=== PATIENT | female | born 2000 | race Caucasian/White ===

== ENCOUNTER 2025-01-05 19:14 | Emergency (ER) | payer OTHER, SELFPAY ==
--- OUTSIDE RECORDS SUMMARY | 2025-01-05 19:21 | XMS_ITS | Patient Health Summary ---
Author Organization [facility] Address [address] [place] [address] Care Team Providers Care Clinical Research Associate Name Role Phone Nydia Castañeda PA-C Primary Care Provider Note from [facility],non-owned Affiliates and Associated Physician Practices is amultiple site organization consisting of ambulatory clinics and hospital sitesin [place], [place], [place] and [place]. This disclosure is being madepursuant to the Care Everywhere program and may not contain all information available regarding this patient. Last updated 18.[facility] Allergies No known active allergies Medications * Be aware that medications may not be up to date on this document. Alwaysverify current medications with the patient. * Naproxen Sodium 220 MG Take by mouth as needed * Levonorgestrel (MIRENA, 52 MG, IU) Active Problems Problem Noted Date Diagnosed Date S/P laparoscopic appendectomy 11/01/2016 Nocturnal enuresis 02/17/2014 Immunizations * DTP(Given 04/01/2003, 01/28/2003, 2002) * FLU VACCINE TRI IIV3 SPLIT PF IM (FLUVIRIN)(Given 10/26/2013) * HEP B VACCINE ADOL/ADULT 2 DOSE(Given 04/01/2003, 2002, 2002) * HIB-HAEMOPHILUS INFLUENZAE B CONJUGATE VACCINE(Given 04/01/2003, 01/28/2003, 2002) * INFLUENZA VACCINE(Given 08/23/2017) * INFLUENZA VACCINE, QUADR. (FLUZONE; FLULAVAL; FLUARIX; AFLURIA QUADRIVALENT; 6MO+), 0.5 ML (IIV4)(Given 10/03/2015) * PNEUMOCOCCAL PCV7 CONJ, PEDS(Given 04/01/2003, 01/28/2003, 2002) * POLIO IPV(Given 01/28/2003, 2002) * TDAP (7yrs+)(Given 06/14/2014) * VARICELLA(Given 01/06/2015) Social History Tobacco Use Types Packs/Day Years Used Date Smoking Tobacco: Never Smokeless Tobacco: Never Alcohol Use Standard Drinks/Week Comments No 0 (1 standard drink = 0.6 oz pur e alcohol) PHQ-2 Answer Date Recorded PHQ2 TOTAL SCORE 0 08/10/2021 Sex and Gender Information Value Date Recorded Sex Assigned at Not on file Gender Identity Not on file Sexual Orientation Not on file Last Filed Vital Signs Vital Sign Reading Time Taken Comments Blood Pressure 96/84 10/13/2021 1:05 PM DUCK BILL OPERATOR Pulse 85 10/13/2021 1:05 PM DUCK BILL OPERATOR Temperature 37.1 C (98.7 F) 10/13/2021 1:05 PM DUCK BILL OPERATOR Respiratory Rate 18 10/13/2021 1:05 PM DUCK BILL OPERATOR Oxygen Saturation 98% 10/13/2021 1:05 PM DUCK BILL OPERATOR Inhaled Oxygen Concentration 21% 10/19/2016 7 :45 AM DUCK BILL OPERATOR Weight 67.1 kg (148 lb) 10/13/2021 1:05 PM DUCK BILL OPERATOR Height 157.5 cm (5' 2 ) 10/13/2021 1:05 PM DUCK BILL OPERATOR Body Mass Index 27.07 10/13/2021 1:05 PM DUCK BILL OPERATOR Procedures * CULTURE URINE(Performed 08/10/2021) Performed for Acute UTI * URINALYSIS - POCT (IP) BEAKER INTERFACE(Performed 08/09/2021) Performed for UTI symptoms * URINALYSIS - POCT (IP) NOTIFICATION(Performed 08/09/2021) Performed for UTI symptoms * VAGINITIS PLUS (BV CA CT NG TRICH)(Performed 10/18/2020) Performed for Vaginal discharge * CULTURE THROAT(Performed 09/27/2020) Performed for Acute pharyngitis, unspecified etiology * STREP A SCREEN - POINT OF CARE (AMB) SMGS(Performed 09/27/2020) Performed for Acute pharyngitis, unspecified etiology * CULTURE URINE(Performed 05/24/2020) Performed for Acute cystitis without hematuria * URINALYSIS - POCT (IP) BEAKER INTERFACE(Performed 05/23/2020) Performed for Dysuria * URINALYSIS - POCT (IP) NOTIFICATION(Performed 05/23/2020) Performed for Dysuria * CULTURE THROAT(Performed 09/18/2017) Performed for Acute pharyngitis, unspecified etiology * STREP A SCREEN - POINT OF CARE (AMB) SMGS(Performed 09/18/2017) Performed for Acute pharyngitis, unspecified etiology * CARDIAC RHYTHM STRIP ORDER(Performed 10/22/2016) * OXYGEN(Performed 10/18/2016) * GROSS + MICRO EXAM (ILL)(Performed 10/18/2016) Performed for Appendicitis, unspecified appendicitis type * LAPAROSCOPIC APPENDECTOMY(Performed 10/18/2016) Performed for Appendicitis, unspecified appendicitis type * HCG BLOOD QUALITATIVE(Performed 10/18/2016) Performed for Preop testing * CT ABDOMEN PELVIS W CONTRAST(Performed 10/18/2016) Performed for Abdominal pain, RLQ (right lower quadrant) * COMPREHENSIVE METABOLIC PANEL(Performed 10/18/2016) Performed for Abdominal pain, RLQ (right lower quadrant), Non-intractable vomiting with nausea, unspecified vomiting type * CBC W AUTO DIFFERENTIAL(Performed 10/18/2016) Performed for Abdominal pain, RLQ (right lower quadrant), Non-intractable vomiting with nausea, unspecified vomiting type * CALCIUM/CREAT RATIO URINE RANDOM PANEL(Performed 02/23/2014) Performed for Nocturnal enuresis * URINALYSIS REFLEX TO MICROSCOPIC NO CULTURE(Performed 02/23/2014) Performed for Nocturnal enuresis * CULTURE URINE(Performed 02/23/2014) Performed for Nocturnal enuresis * URINE MICROSCOPIC ONLY(Performed 02/23/2014) Performed for Nocturnal enuresis * US BLADDER RESIDUAL ACC(Performed 02/23/2014) Performed for Nocturnal enuresis * US KIDNEYS W BLADDER(Performed 02/23/2014) Performed for Nocturnal enuresis * CULTURE URINE(Performed 02/17/2014) Performed for Urinary frequency * URINALYSIS AUTO - POINT OF CARE (AMB) SMGS(Performed 02/17/2014) Performed for Urinary frequency, Vaginal itching * FL CYSTOGRAM VOIDING(Performed 04/10/2011) Performed for Urinary tract infection, site not specified Results * CULTURE URINE (08/10/2021 11:35 AM CDT) Only the most recent of4 resultswithin the time period is included. Pathologist [facility] Culture Urine Light growth normal skin/urogen ital misti SYLVIA 08/12/2021 10:24 AM CDT [facility] Urine URINE SPECIMEN OBTAINED BY CLEAN CATCH PROCEDURE / Unknown Collection / Unknown 08/10/2021 11:35 AM CDT 08/10/2021 11:35 AM CDT Nydia Castañeda PA-C LAB - MICROBIOLOGY O RDERABLES [facility] [address] * (ABNORMAL) URINALYSIS - POCT (IP) BEAKER INTERFACE (08/09/2021 12:07 PM CDT) Only the most recent of2 resultswithin the time period is included. Pathologist [facility] Color UA POCT Dark Yellow(A) Straw, Yellow, Light Yellow 08/09/2021 12:05 PM CDT [facility] Clarity UA POCT Cloudy(A) Clear 12:05 PM CDT [facility] Specific [place] UA POCT >=1.030 1.005 - 1.030 08/09/2021 12:05 PM CDT [facility] pH UA POCT 5.0 5.0 - 8.5 pH 08/09/2021 12:05 PM CDT [facility] Protein UA POCT 2+(A) Negative 1 12:05 PM CDT [facility] Blood UA POCT 2+(A) Negative, Trace-lysed , Trace-intac t 08/09/2021 12:05 PM CDT [facility] Leukocyte UA POCT 2+(A) Negative 08/09/2021 12:05 PM CDT [facility] Nitrite UA POCT Negative Negative 12:05 PM CDT [facility] Glucose UA POCT Negative Negative 1 12:05 PM CDT [facility] Ketone UA POCT Negative Negative 08/09/2021 12:05 PM CDT [facility] Bilirubin UA POCT Negative Negative 08/09/2021 12:05 PM CDT [facility] Urobilinogen UA POCT 0.2 0.2 - 1.0 EU/dL 08/09/2021 12:05 PM CDT [facility] Urine URINE / Unknown 08/09/2021 1 2:07 PM CDT 08/09/2021 12:05 PM CDT Do Henderson APRN-DIRECTOR OF ALUMNI RELATIONS LAB - POIN T OF CARE ORDERABLES Performing Organization Address City/[facility]/ZIP Co de Phone Number [facility] [address] * URINALYSIS - POCT (IP) NOTIFICATION (08/09/2021 11:59 AM CDT) Only the most recent of2 resultswithin the time period is included. Comment Notification Label Only - See Separate Report 08/09/2021 1:00 PM CDT [facility] Urine URINE / Unknown 08/09/2021 1 1:59 AM CDT 08/09/2021 11:59 AM CDT Do Henderson APRN-DIRECTOR OF ALUMNI RELATIONS LAB - URIN ALYSIS ORDERABLES Performing Organization Address [facility] Co de Phone Number [facility] [address] * (ABNORMAL) VAGINITIS PLUS (BV CA CT NG TRICH) (10/18/2020 5:00 PM DUCK BILL OPERATOR) Atopobium vaginae Low - 0 Score [facility] INSURANCE BILL BVAB 2 Low - 0 Score [facility] INSURANCE BILL Megashaera Low - 0 Score [facility] INSURANCE BILL Comment: Calculate total score by adding the 3 individual bacterial vaginosis (BV) marker scores together. Total score is interpreted as follows: Total score 0-1: Indicates the absence of BV. Total score 2: Indeterminate for BV. Additional clinical data should be evaluated to establish a diagnosis. Total score 3-6: Indicates the presence of BV. . This test was developed and its performance characteristics determined [facility]. It has not been cleared or approved by the Food and Drug Administration. The FDA has determined that such clearance or approval is not necessary. Melissa albicans HEENA Positive(A) Negative [facility] INSURANCE BILL Melissa glabrata HEENA Negative Negative [facility] INSURANCE BILL Trichomonas vaginalis by HEENA Negative Negative [facility] INSURANCE BILL Chlamydia Trachomatis HEENA Negative Negative [facility] INSURANCE BILL GC HEENA Negative Negative [facility] INSURANCE BILL Microbiology ENTIRE VAGINA / Unknown 10/18/2020 5:00 PM DUCK BILL OPERATOR 10/21/2020 Narrative [facility] INSURANCE BILL - 10/29/2020 10:07 AM DUCK BILL OPERATOR Test(s) 763006-Pmjdgnd albicans, HEENA; 339845-Koxlsbz glabrata, HEENA was developed and its performance characteristics determined by [employer]. It has not been cleared or approved by the Food and Drug Administration. Resulting Agency Comment Lab Testing performed at: [address] [id number] Nina Gonzalez APRN-DIRECTOR OF ALUMNI RELATIONS LAB - MICROBI OLOGY ORDERABLES Performing Organization Address City/[facility]/ZIP Co de Phone Number [facility] INSURANCE BILL [address] [place] [address] * (ABNORMAL) CULTURE THROAT (09/27/2020 1:49 PM DUCK BILL OPERATOR) Only the most recent of2 resultswithin the time period is included. [facility] Culture 2+ growth Beta-hemolytic Streptococcus group C(A) SYLVIA 09/29/2020 2:40 AM DUCK BILL OPERATOR [facility] Culture Growth of normal oropharyngeal misti SYLVIA 09/29/2020 2:40 AM DUCK BILL OPERATOR [facility] Microbiology ENTIRE THROAT (SURFACE REGION OF NECK) / Unknown Collection / Unknown 09/27/2020 1:49 PM DUCK BILL OPERATOR 09/27/2020 1:49 PM DUCK BILL OPERATOR Nydia Castañeda PA-C LAB - MICROBIOLOGY O RDERABLES [facility] [address] * STREP A SCREEN - POINT OF CARE (AMB) SMGS (09/27/2020) Only the most recent of2 resultswithin the time period is included. Pathologist [facility] Strep A Rapid POCT Negative Negative [facility] Strep A Rapid Screen Internal Control POCT Present [facility] Throat ENTIRE THROAT (SURFACE REGION OF NECK) / Unknown 09/27/2020 Nydia Castañeda PA-C LAB - POINT OF CARE ORDERABLES [facility] [address] * CARDIAC RHYTHM STRIP ORDER (10/22/2016 11:57 AM DUCK BILL OPERATOR) Narrative 10/22/2016 11:57 AM DUCK BILL OPERATOR Ordered by an unspecified provider. Scanned Document [facility] SERVICES ORD ERABLES * GROSS + MICRO EXAM (ILL) (10/18/2016 6:24 PM DUCK BILL OPERATOR) Case Report Surgical Pathology Report Case: [id number] Authorizing Provider: Andrei Castellanos MD Collected: 10/18/2016 06:24 PM Ordering Location: [facility] Received: 10/19/2016 01:38 PM Pathologist: Lino Adams MD Specimen: Appendix 10/22/2016 1:42 PM DUCK BILL OPERATOR [facility] Final Diagnosis APPENDIX, APPENDECTOMY: - ACUTE, TRANSMURAL APPENDICITIS WITH SEROSITIS AND PERIAPPENDICITIS. - NEGATIVE FOR EVIDENCE OF RUPTURE. - NEGATIVE FOR DYSPLASIA AND MALIGNANCY. ALK/alj 10/22/2016 1:42 PM [facility] Clinical History PREOPERATIVE DIAGNOSIS: Appendicitis, unspecified appendicitis type OPERATIVE PROCEDURE: Laparoscopic appendectomy 10/22/2016 1:42 PM [facility] Gross Description One specimen was received for gross and micro exam. Received in formalin, labeled properly with the patient identification and, a ppendix is a segment of vermiform appendix measuring 8.0 cm in length ranging 0.5 cm (distal) - 1.3 cm (proximal). The serosa appears guardado-schafer with a thick layer of purulent exudates covering distal 4.5 cm segment. On cut section, the wall appears thickened measuring up to 0.4 cm. The mucosa appears pink. No area of rupture is noted. No fecalith is seen. A paper sales representative portion of the specimen is submitted as follows: A1 - a distal longitudinal section and a cross section of base, A2 - multiple cross sections through grossly inflamed area. HC/na 10/22/2016 1:42 PM [facility] Grossed By Camilo Pierre M.D. 1:42 PM [facility] Microscopic Description Microscopic examination is performed and substantiates the above diagnosis. 10/22/2016 1:42 PM [facility] Performed By Performed by [facility] [place]. [address]. 10/22/2016 1:42 PM [facility] Disclaimer H&E slides [place]. [address] (CLIA# [id number]) unless otherwise specified. 10/22/2016 1:42 PM [facility] Embedded Images 10/22/2016 1:42 PM [facility] Pathology/Cytolo gy ENTIRE APPENDIX / Unknown 10/18/2016 6:24 PM DUCK BILL OPERATOR 10/19/2016 1:38 PM DUCK BILL OPERATOR Andrei Castellanos MD LAB - PATHOLOGY/CYTO LOGY ORDERABLES Performing Organization Address City/[facility]/ZIP Co de Phone Number [facility] [address] * HCG BLOOD QUALITATIVE (10/18/2016 5:09 PM DUCK BILL OPERATOR) HCG Qual Serum Negative Negative 10/18/2016 5:25 PM DUCK BILL OPERATOR [facility] Blood BLOOD SPECIMEN / Unknown Lab Venipuncture / Unknown 10/18/2016 5:09 PM DUCK BILL OPERATOR 10/18/2016 5:14 PM DUCK BILL OPERATOR Andrei Castellanos MD LAB - CHEMISTRY ORDE RABLES Performing Organization Address [facility] Co de Phone Number [facility] [address] * CT ABDOMEN AND PELVIS W IV CONTRAST [id number] (10/18/2016 2:40 PM DUCK BILL OPERATOR) Anatomical Region Laterality Modality Abdomen, Pelvis Computed Tomogra phy 10/18/2016 2:58 PM DUCK BILL OPERATOR Narrative 10/18/2016 4:[address] SCAN OF THE ABDOMEN AND PELVIS WITH IV CONTRAST 10/18/2016 INDICATION: Lower quadrant pain. CT performed with injection of 60 cc of Omnipaque 300 intravenously. COMPARISON: None. Radiation dose reduction technique was utilized. FINDINGS: The appendix is markedly enlarged. It is located in a retrocecal location. There is para appendiceal stranding but no abscess cavity. Findings consistent with acute appendicitis. Appendix measures 1.5 cm in diameter. Trace amount of free fluid. Uterus lies to the left of midline. No adnexal masses. No bowel obstruction. No free air. Lung bases are clear. Heart size is normal. Liver is homogeneous. Gallbladder is grossly normal. Spleen is within normal limits in size. Pancreatic contour is normal. Renal margins are smooth. No renal calculi. No hydronephrosis. No adenopathy. SUMMARY: Acute appendicitis in a retrocecal appendix without abscess cavity. Preliminary report faxed to Maru Castañeda PA-C 10/18/2016 at 1502h. Call subsequently made to Grace Dennison to confirm receipt. Procedure Note Reji Smalls MD - 10/18/2016 CT SCAN OF THE ABDOMEN AND PELVIS WITH IV CONTRAST 10/18/2016 INDICATION: Lower quadrant pain. CT performed with injection of 60 cc of Omnipaque 300 intravenously. COMPARISON: None. Radiation dose reduction technique was utilized. FINDINGS: The appendix is markedly enlarged. It is located in a retrocecal location. There is para appendiceal stranding but no abscess cavity. Findings consistent with acute appendicitis. Appendix measures 1.5 cm in diameter. Trace amount of free fluid. Uterus lies to the left of midline. No adnexal masses. No bowel obstruction. No free air. Lung bases are clear. Heart size is normal. Liver is homogeneous. Gallbladder is grossly normal. Spleen is within normal limits in size. Pancreatic contour is normal. Renal margins are smooth. No renal calculi. No hydronephrosis. No adenopathy. SUMMARY: Acute appendicitis in a retrocecal appendix without abscess cavity. Preliminary report faxed to Maru Castañeda PA-C 10/18/2016 at 1502h. Call subsequently made to Grace Dennison to confirm receipt. Nydia Castañeda PA-C CT ORDERABLES * (ABNORMAL) CBC W AUTO DIFFERENTIAL (10/18/2016 1:03 PM DUCK BILL OPERATOR) [facility] WBC 13.3(H) 3.8 - 9.8 x10E9/L 10/18/2016 1:34 PM [facility] RBC 4.93 3.93 - 5.29 x10E12/L 10/18/2016 1:34 PM [facility] Hemoglobin 15.4(H) 10.8 - 14.5 gm/dL 10/18/2016 1:34 PM [facility] Hematocrit 43.5 33.4 - 43.5 % 10/18/2016 1:34 PM [facility] MCV 88.2 76.7 - 90.6 fl 10/18/2016 1:34 PM [facility] MCH 31.2(H) 24.8 - 30.2 pg 10/18/2016 1:34 PM [facility] MCHC 35.4(H) 31.5 - 34.8 gm/dL 10/18/2016 1:34 PM [facility] RDW 12.6 12.3 - 14.6 % 10/18/2016 1:34 PM [facility] MPV 9.9 8.6 - 11.8 fl 10/18/2016 1:34 PM [facility] Platelet Count 232 175 - 345 x10E9/L 10/18/2016 1:34 PM [facility] Neutrophils % 80.3(H) 32.5 - 74.7 % 10/18/2016 1:34 PM [facility] Lymphocytes % 7.8(L) 16.4 - 52.7 % 10/18/2016 1:34 PM [facility] Monocytes % 8.2 4.1 - 12.3 % 10/18/2016 1:34 PM [facility] Eosinophils % 3.1 0.0 - 4.0 % 10/18/2016 1:34 PM [facility] Basophils % 0.4 0.0 - 0.7 % 10/18/2016 1:34 PM [facility] Immature Granulocytes 0.2 0 - 0.3 % 10/18/2016 1:34 PM [facility] Neutrophil Absolute 10.64(H) 1.54 - 7.47 x10E9/L 10/18/2016 1:34 PM [facility] Lymphocytes Absolute 1.04 0.97 - 3.33 x10E9/L 10/18/2016 1:34 PM [facility] Monocytes Absolute 1.08(H) 0.18 - 0.78 x10E9/L 10/18/2016 1:34 PM [facility] Eosinophils Absolute 0.41(H) 0.02 - 0.38 x10E9/L 10/18/2016 1:34 PM [facility] Basophils Absolute 0.05 0.01 - 0.05 x10E9/L 10/18/2016 1:34 PM [facility] Immature Granulocytes Absolute 0.03 0 - 0.03 x10E9/L 10/18/2016 1:34 PM [facility] nRBC Auto 0 <=0 /100 WBC 10/18/2016 1:34 PM [facility] nRBC Absolute 0.00 <=0 x10E9/L 10/18/2016 1:34 PM [facility] Blood BLOOD SPECIMEN / Unknown Lab Venipuncture / Unknown 10/18/2016 1:03 PM DUCK BILL OPERATOR 10/18/2016 1:29 PM [facility] Nydia Castañeda PA-C LAB - HEMATOLOGY ORD ERABLES Performing Organization Address City/State/[facility] Co de Phone Number [facility] [address] * (ABNORMAL) COMPREHENSIVE METABOLIC PANEL (10/18/2016 1:03 PM [facility]) Glucose 89 70 - 125 mg/dL 10/18/2016 2:01 PM [facility] Sodium 140 136 - 145 mmol/L 10/18/2016 2:01 PM [facility] Potassium 3.8 3.4 - 4.5 mmol/L 10/18/2016 2:01 PM [facility] Chloride 107 98 - 107 mmol/L 10/18/2016 2:01 PM [facility] CO2 24 22 - 29 mmol/L 10/18/2016 2:01 PM [facility] Calcium 9.5 8.4 - 10.2 mg/dL 10/18/2016 2:01 PM [facility] Anion Gap 13 10 - 20 mmol/L 10/18/2016 2:01 PM [facility] BUN 6.5(L) 9.8 - 20.1 mg/dL 10/18/2016 2:01 PM [facility] Creatinine 0.60 0.57 - 1.11 mg/dL 10/18/2016 2:01 PM [facility] eGFR by MDRD mL/min/1.7 3m2 10/18/2016 2:01 PM [facility] Comment: eGFR calculations are not performed for children under 18 years old. eGFR by MDRD mL/min/1.7 3m2 10/18/2016 2:01 PM [facility] Comment: eGFR calculations are not performed for children under 18 years old. Alkaline Phosphatase 173(H) 40 - 150 U/L 10/18/2016 2:01 PM [facility] ALT 11 5 - 55 U/L 10/18/2016 2:01 PM [facility] AST 19 5 - 34 U/L 10/18/2016 2:01 PM [facility] Protein Total 7.1 6.4 - 8.3 gm/dL 10/18/2016 2:01 PM [facility] Albumin 3.9 3.5 - 5.0 gm/dL 10/18/2016 2:01 PM [facility] Globulin Total 3.2 2.6 - 4.0 gm/dL 10/18/2016 2:01 PM [facility] Albumin/Globulin Ratio 1.2 0.9 - 1.6 10/18/2016 2:01 PM [facility] Bilirubin Total 0.7 0.2 - 1.2 mg/dL 10/18/2016 2:01 PM [facility] Blood BLOOD SPECIMEN / Unknown Lab Venipuncture / Unknown 10/18/2016 1:03 PM DUCK BILL OPERATOR 10/18/2016 1:29 PM [facility] Nydia Castañeda PA-C LAB - CHEMISTRY CARIE BIGGS [facility] Organization Address [facility] de Phone Number [facility] [address] * CALCIUM/CREAT RATIO URINE RANDOM PANEL (02/23/2014 10:38 AM T) Calcium Urine 14.66 mg/dL 02/23/2014 11:30 AM [facility] Creatinine Urine 95.37 mg/dL 02/23/2014 11:30 AM [facility] Calcium/Creatin ine Ratio Urine 0.15 02/23/2014 11:30 AM [facility] Urine URINE SPECIMEN OBTAINED BY CLEAN CATCH PROCEDURE / Unknown 02/23/2014 10:38 AM CDT 02/23/2014 10:53 AM CDT Narrative [facility] - 02/23/2014 11:30 AM CDT Normal <0.16 Borderline 0.16-0.20 Abnormal >0.20 Renee Siu HEAD RESIDENT-DIRECTOR OF ALUMNI RELATIONS LAB - URINE CHEMISTRY ORDERABLES Performing Organization Address [facility] de Phone Number [facility] [address] [place] [address] * URINALYSIS ROUTINE AUTO (02/23/2014 10:37 AM CDT) Color UA Yellow Straw, Yellow, Dark Yellow 02/23/2014 11:29 AM T [facility] Clarity UA Clear 02/23/2014 11:29 AM T [facility] Specific [place] UA >=1.030 1.005 - 1.030 02/23/2014 11:29 AM T [facility] pH UA 6.5 5.0 - 8.0 pH 02/23/2014 11:29 AM T [facility] Protein UA Negative Negative 02/23/2014 11:29 AM T [facility] Blood UA Negative Negative 02/23/2014 11:29 AM T [facility] Leukocyte UA Negative Negative 02/23/2014 11:29 AM T [facility] Nitrite UA Negative Negative 02/23/2014 11:29 AM T [facility] Glucose UA Negative Negative 02/23/2014 11:29 AM T [facility] Ketone UA Negative Negative 02/23/2014 11:29 AM T [facility] Bilirubin UA Negative Negative 02/23/2014 11:29 AM T [facility] Urobilinogen UA 0.2 0.1 - 1.0 EU/dL 02/23/2014 11:29 AM T [facility] Urine URINE SPECIMEN OBTAINED BY CLEAN CATCH PROCEDURE / Unknown 02/23/2014 10:37 AM CDT 02/23/2014 11:27 AM CDT Renee Siu HEAD RESIDENT-DIRECTOR OF ALUMNI RELATIONS LAB - URINAL YSIS ORDERABLES Performing Organization Address [facility] de Phone Number [facility] [address] [place] [address] * (ABNORMAL) URINALYSIS MICROSCOPIC ONLY (02/23/2014 10:37 AM CDT) RBC UA 0-2 0-2, 2-5 # /hpf 02/23/2014 11:32 AM CDT [facility] WBC UA 0-2 0-2, 2-5 # /hpf 02/23/2014 11:32 AM CDT [facility] Bacteria UA Trace None Seen, Trace 02/23/2014 11:32 AM CDT [facility] Epithelial Cell UA 0-2 0-2, 2-5 02/23/2014 11:32 AM CDT [facility] Amorphous Urate Crystals 1+(A) None Seen 02/23/2014 11:32 AM CDT [facility] Urine URINE SPECIMEN OBTAINED BY CLEAN CATCH PROCEDURE / Unknown 02/23/2014 10:37 AM CDT 02/23/2014 11:27 AM CDT Renee Siu [facility] - URINAL YSIS ORDERABLES Performing Organization Address City/State/[facility] Co de Phone Number [facility] [address] [place] [address] * US BLADDER RESIDUAL ACC (02/23/2014 10:08 AM CDT) Narrative Ce Arndt RN - 02/23/2014 10:08 AM CDT Ce Arndt RN 02/23/2014 10:08 AM Post void residual per BladderScan ~5 min after void = 13 ml. Procedure Note Ce Arndt RN - 02/23/2014 10:06 AM CDT Post void residual per BladderScan ~5 min after void = 13 ml. Apple Recio [facility] PROCEDURE ORD ERABLES * US KIDNEY AND BLADDER (02/23/2014 9:13 AM CDT) Anatomical Region Laterality Modality Ultrasound 02/23/2014 10:3 4 AM CDT Impressions 02/23/2014 10:35 AM CDT Normal renal ultrasound Narrative 02/23/2014 10:35 AM CDT Exam: Renal ultrasound dated 02/23/2014. Clinical History: Nocturnal enuresis Findings: Multiple, real-time images of the bilateral kidneys were obtained. No prior examinations are available for comparison. The right kidney measures 8.8 cm, and the left kidney measures 9.4 cm. The mean renal length for children age 11-12 years is 9.6 cm with a standard deviation of 0.64 cm. Renal cortical echogenicity is normal. No hydronephrosis, masses, or stones are seen. The urinary bladder is incompletely distended and grossly normal. There is no evidence of distal ureteral dilation. Procedure Note Cristiano Chaudhary MD - 02/23/2014 Exam: Renal ultrasound dated 02/23/2014. Clinical History: Nocturnal enuresis Findings: Multiple, real-time images of the bilateral kidneys were obtained. No prior examinations are available for comparison. The right kidney measures 8.8 cm, and the left kidney measures 9.4 cm. The mean renal length for children age 11-12 years is 9.6 cm with a standard deviation of 0.64 cm. Renal cortical echogenicity is normal. No hydronephrosis, masses, or stones are seen. The urinary bladder is incompletely distended and grossly normal. There is no evidence of distal ureteral dilation. IMPRESSION Normal renal ultrasound Apple Recio APRN-[facility] US ORDERABLES * (ABNORMAL) URINALYSIS AUTO - POINT OF CARE (AMB) [facility] (02/17/2014 11:20 AM CDT) Clarity UA POCT Color UA POCT yellow Glucose UA Negative Negative Bilirubin UA POCT Negative Negative Ketone UA Negative Negative Specific [place] UA POCT >=1.030 1.002 - 1.030 Blood UA POCT Negative Negative pH UA 5.0 5.0 - 8.0 pH units Protein UA POCT Negative Negative Urobilinogen UA 0.2 0.1 - 1.0 Nitrite UA POCT Negative Negative Leukocyte UA Small(A) Negative QC Verified Yes Yes Urine specimen (specimen) URINE / Unknown Nydia Castañeda PA-C LAB - POINT OF CARE ORDERABLES * FL CYSTOGRAM VOIDING (04/10/2011 11:25 AM CDT) Anatomical Region Laterality Modality Abdomen, Pelvis Radiographic Luanne ging 04/10/2011 12:0 9 PM CDT Impressions 04/10/2011 12:09 PM CDT Normal VCUG. Narrative 04/10/2011 12:09 PM CDT EXAMINATION: VCUG dated Mar 10, 2010 10:53:30 AM. HISTORY: UTI TECHNIQUE: Utilizing aseptic technique the patient was cleaned, and then a feeding tube was introduced into the bladder in retrograde fashion. After draining the bladder, 325 cc of cystographic contrast was instilled. FINDINGS: No prior examinations are available for comparison. Dog Walker radiograph demonstrates a nonspecific bowel gas pattern. No osseous abnormalities are appreciated. The bladder capacity is normal. There is no evidence of vesicoureteral reflux. Upon spontaneous voiding a normal female urethra was identified. Procedure Note Cristiano Chaudhary Christiano - 04/10/2011 EXAMINATION: VCUG dated Mar 10, 2010 10:53:30 AM. HISTORY: UTI TECHNIQUE: Utilizing aseptic technique the patient was cleaned, and then a feeding tube was introduced into the bladder in retrograde fashion. After draining the bladder, 325 cc of cystographic contrast was instilled. FINDINGS: No prior examinations are available for comparison. Dog Walker radiograph demonstrates a nonspecific bowel gas pattern. No osseous abnormalities are appreciated. The bladder capacity is normal. There is no evidence of vesicoureteral reflux. Upon spontaneous voiding a normal female urethra was identified. IMPRESSION Normal VCUG. Adam Camarillo MD FLUOROSCOPY ORDERABL ES Care Teams Clinical Research Associate Relationship Specialty Start Date End Date Nydia Castañeda, MCKENNA [address] [place] [address] PCP - General Physician Kindergarten Assistant 10/19/13
--- OUTSIDE RECORDS SUMMARY | 2025-01-05 19:22 | XMS_ITS | Referral Summary ---
Author Organization [facility] Address [address] [place] [address] Care Team Providers Care Lead Cook Name Role Phone Nydia Castañeda PA-C Primary Care Provider Source Comments [facility],non-owned Affiliates and Associated Physician Practices is amultiple site organization consisting of ambulatory clinics and hospital sitesin [place], [place], [place] and [place]. This disclosure is being madepursuant to the Care Everywhere program and may not contain all information available regarding this patient. Last updated 18.[facility] [employer] Allergies No known active allergies Medications * Be aware that medications may not be up to date on this document. Alwaysverify current medications with the patient. Medication Sig Dispensed Refills Start Date End Date Status Naproxen Sodium 220 MG Take by mouth as needed Active Levonorgestrel (MIRENA, 52 MG, IU) Activ e Active Problems Problem Noted Date Diagnosed Date S/P laparoscopic appendectomy 11/01/2016 Nocturnal enuresis 02/17/2014 Immunizations Name Administration Dates Next Due DTP 04/01/2003,01/28/2003,2002 FLU VACCINE TRI IIV3 SPLIT PF IM (FLUVIRIN) 07/2013 HEP B VACCINE ADOL/ADULT 2 DOSE 04/01/2003,12/02,2002 HIB-HAEMOPHILUS INFLUENZAE B CONJUGATE VACCINE 04/01/2003,01/28/2003,2002 INFLUENZA VACCINE 08/23/2017 INFLUENZA VACCINE, QUADR. (F LUZONE; FLULAVAL; FLUARIX; AFLURIA QUADRIVALENT; 6MO+), 0.5 ML (IIV4) 10/03/2015 PNEUMOCOCCAL PCV7 CONJ, PEDS 04/01/2003,01/29/20 03,2002 POLIO IPV 01/28/2003,2002 TDAP (7yrs+) 06/14/2014 VARICELLA 01/06/2015 Social History Tobacco Use Types Packs/Day Years [...] Comments Blood Pressure 96/84 10/13/2021 1:05 PM PROPELLER ENGINEER Pulse 85 10/13/2021 1:05 PM PROPELLER ENGINEER Temperature 37.1 C (98.7 F) 10/13/2021 1:05 PM PROPELLER ENGINEER Respiratory Rate 18 10/13/2021 1:05 PM PROPELLER ENGINEER Oxygen Saturation 98% 10/13/2021 1:05 PM PROPELLER ENGINEER Inhaled Oxygen Concentration 21% 10/19/2016 7 :45 AM PROPELLER ENGINEER Weight 67.1 kg (148 lb) 10/13/2021 1:05 PM PROPELLER ENGINEER Height 157.5 cm (5' 2 ) 10/13/2021 1:05 PM PROPELLER ENGINEER Body Mass Index 27.07 10/13/2021 1:05 PM PROPELLER ENGINEER Functional Status Functional Status Response Date of Assess ment Is person deaf or have serious hearing difficult y? No 10/19/2016 Is person blind or have serious difficulty seein g? No 10/19/2016 Does person have serious dif ficulty walking/climbing stairs? No 10/19/2016 Does person have difficulty dressing/bathing? No 10/19/2016 Does person have difficulty doing errands alone? No 10/19/2016 Cognitive Status Response Date of Assessm ent Does person have difficulty concentrating/remembering/making decisions? No 10/19/2016 Plan of Treatment Not on file Procedures Procedure Name Priority Date/Time Associated Diagnosis Comments VAGINITIS PLUS (BV CA CT NG TRICH) Routine 10/18/2020 5:00 PM PROPELLER ENGINEER Vaginal discharge from Last 3 Months or Most Recently Relevant to Health Maintenance Results * (ABNORMAL) VAGINITIS PLUS (BV CA CT NG TRICH) (10/18/2020 5:00 PM PROPELLER ENGINEER) Atopobium vaginae Low - 0 Score LA [...] developed and its performance characteristics determined by [employer]. It has not been cleared or approved [...] ENTIRE VAGINA / Unknown 10/18/2020 5:00 PM PROPELLER ENGINEER 10/21/2020 Narrative [facility] INSURANCE BILL - 10/29/2020 10:07 AM PROPELLER ENGINEER Test(s) 733014-Grhepdo albicans, HEENA; 516243-Vcrpxpg glabrata, HEENA was developed and its performance characteristics determined by [employer]. It has not been cleared or approved by the Food and Drug Administration. Resulting Agency Comment Lab Testing performed at: [facility] [id number] Nina Gonzalez APRN-[facility] LAB - MICROBI OLOGY ORDERABLES [facility] INSURANCE BILL [address] [place] [address] from Last 3 Months or Most Recently Relevant to Health Maintenance Advance Directives * Full Code (Latest Code Status on File) Date Activated Date Inactivated Comments 10/18/2016 7:43 PM 10/19/2016 9:25 AM Care Teams Lead Cook Relationship Specialty Start Date End Date Nydia Castañeda PA-C [address] [place] [address] PCP - General Physician Spike Machine Heater 10/19/13
--- OUTSIDE RECORDS SUMMARY | 2025-01-05 19:22 | XMS_ITS | Clinical Summary ---
Author Organization [facility] Address [address] [facility] [place] [address] Care Team Providers Care Pipe Wrapping Machine Operator Name Role Phone Nydia Castañeda PA-C Primary Care Provider Source Comments [facility],non-owned Affiliates and Associated Physician Practices is amultiple site organization consisting of ambulatory clinics and hospital sitesin [place], [place], [place] and [place]. This disclosure is being madepursuant to the Care Everywhere program and may not contain all information available regarding this patient. Last updated 18.[facility] [employer] Allergies No known active allergies Medications * [...] IPV 01/28/2003,2002 TDAP (7yrs+) 06/14/2014 VARICELLA 01/06/2015 Family History Medical History Relation Name Comments COPD - Chronic Obstructive Pulmonary Disease Maternal Grandfather Heart Disease Maternal Grandfather Relation Name Status Comments Father Alive Maternal Grandfather Alive Maternal Grandmother Alive Mother Alive Paternal Grandfather Alive Paternal Grandmother Alive Social History Tobacco Use Types Packs/Day Years [...] Comments Blood Pressure 96/84 10/13/2021 1:05 PM FEED HOUSE SUPERVISOR Pulse 85 10/13/2021 1:05 PM FEED HOUSE SUPERVISOR Temperature 37.1 C (98.7 F) 10/13/2021 1:05 PM FEED HOUSE SUPERVISOR Respiratory Rate 18 10/13/2021 1:05 PM FEED HOUSE SUPERVISOR Oxygen Saturation 98% 10/13/2021 1:05 PM FEED HOUSE SUPERVISOR Inhaled Oxygen Concentration 21% 10/19/2016 7 :45 AM FEED HOUSE SUPERVISOR Weight 67.1 kg (148 lb) 10/13/2021 1:05 PM FEED HOUSE SUPERVISOR Height 157.5 cm (5' 2 ) 10/13/2021 1:05 PM FEED HOUSE SUPERVISOR Body Mass Index 27.07 10/13/2021 1:05 PM FEED HOUSE SUPERVISOR Plan of Treatment Health Maintenance Due Date Last Done Comments PAP SMEAR 2002 HIV SCREENING 2017 HPV VACCINE (1 - 3-dose series) 2017 MENINGOCOCCAL (Group B) VACCINE (1 of 2 - Standard) 2018 HEPATITIS C SCREENING 09/25/2020 CHLAMYDIA/GONORRHEA SCREENING 10/18/2021 10/18/2020 DTAP/TDAP/TD VACCINES (5 - Td or Tdap) 06/14/2024 06/14/2014, 04/01/2003, 01/28/2003, Additional history exists COVID-19 VACCINE ( season) 2024 INFLUENZA VACCINE (#1) 2024 7, 10/03/2015, 10/26/2013 DEPRESSION SCREENING 11/18/2024 ZOSTER VACCINE (1 of 2) 2052 HEPATITIS B VACCINE Completed 04/01/2003, 2002, 2002 HIB VACCINE Aged Out 04/01/2003, 01/16, 2002 No longer eligible based on patient's age to complete this topic PNEUMOCOCCAL VACCINE Aged Out 04/01/2003, 01/28/2003, 2002 No longer eligible based on patient's age to complete this topic MENINGOCOCCAL VACCINE Aged Out No mora laana eligible based on patient's age to complete this topic Procedures Procedure Name Priority Date/Time Associated Diagnosis Comments VAGINITIS PLUS (BV CA CT NG TRICH) Routine 10/18/2020 5:00 PM FEED HOUSE SUPERVISOR Vaginal discharge from Last 3 Months or Most Recently Relevant to Health Maintenance Results * (ABNORMAL) VAGINITIS PLUS (BV CA CT NG TRICH) (10/18/2020 5:00 PM FEED HOUSE SUPERVISOR) Atopobium vaginae Low - 0 Score LA [...] developed and its performance characteristics determined by [employer]. It has not been cleared or approved [...] ENTIRE VAGINA / Unknown 10/18/2020 5:00 PM FEED HOUSE SUPERVISOR 10/21/2020 Narrative [facility] INSURANCE BILL - 10/29/2020 10:07 AM FEED HOUSE SUPERVISOR Test(s) 232358-Twgqwfn albicans, HEENA; 388243-Kzmlntq glabrata, HEENA was developed and its performance characteristics [facility]. It has not been cleared or approved by the Food and Drug Administration. Resulting Agency Comment Lab Testing performed at: [address] [id number] Nina Gonzalez PHARMACIST IN CHARGE-INSURANCE RATER LAB - MICROBI OLOGY ORDERABLES [facility] [address] [place] [address] from Last 3 Months or Most Recently Relevant to Health Maintenance Advance Directives * Full Code (Latest Code Status on File) Date Activated Date Inactivated Comments 10/18/2016 7:43 PM 10/19/2016 9:25 AM Care Teams Pipe Wrapping Machine Operator Relationship Specialty Start Date End Date Nydia Castañeda PA-C [address] [place] [address] PCP - General Physician General Adjuster 10/19/13
--- OUTSIDE RECORDS SUMMARY | 2025-01-05 19:22 | XMS_ITS ---
Author Organization [facility] Address [address] [place] [address] Care Team Providers Care Aquatics Instructor Name Role Phone TONYA ASHBY Primary Care Provider IAN MCKENZIE Unavailable [phone] Allergies No Known Allergies REASON FOR VISIT Cold Sore Medications Medication SIG (Take, Route, Frequency, Duration) Notes Start Date End Date Status Mirena Not-Taking valACYclovir HCl 1 GM 1 tablet Orally every 12 hours for 5 days 1000 mg twice a day for 5 days; take silvio at symptom onset of cold sore; please provide additional treatment counselor to pt on medication at pharmacy 10/24/2023 11/08/2023 Active Social History Tobacco Use/Smoking Question Answer Notes Additional Findings: Tobacco User e-Cigarette Section Notes: Does not smoke cigarettes Vapes nicotine 1-3 times a day Alcohol none Denes Marijuana, recreational drugs Encounters Encounter Location Date Provider Diagnosis [place] [address] [place] [address] 10/24/2023 IAN MCKENZIE Cold sore B00.1 Assessments Encounter Date Diagnosis (ICD Code) Assessment Notes Treatment Notes Treatment Clinical Notes Section Notes 10/24/2023 Cold sore (ICD-10 - B00.1) Cold sore. Pt denies any medication allergies. Denies any kidney or liver issues. Denies any chance of or . Discussed valtrex i.e. uses, side effects. Will order valtrex for pt. 10/24/2023 Other Pt advised to call within the week if symptoms not improving, sooner for any worsening of symptoms. Pt advised to call for any additional concerns. Patient consented to a telemedicine encounter via audio communication. Patient physical location for DOS is at listed residence unless otherwise stated. Billing based on cummulative time. All lab work, imaging, medications and records pertinent to the below diagnoses were reviewed with patient. Treatment plan and goals were reviewed with patient and/or family, suggestions for self care tools at home were discussed with patient and/or family where appropriate. Questions were answered to patient satisfaction. Patient agrees to the plan and follow up recommendations discussed. Patient aware to follow up sooner if any new or worsening symptoms. ER instructions explained where appropriate. Provider follow up: 1 week Additional needs: PCT to send rx to preferred pharmacy, Family pharmacy Plan Of Treatment Medication Medication Name Sig Start Date Stop Date Notes valACYclovir HCl 1 GM 1 tablet Orally every 12 hours for 5 days 10/24/2023 11/08/2023 1000 mg twice a day for 5 days; take silvio at symptom onset of cold sore; please provide additional treatment counselor to pt on medication at pharmacy Treatment Notes Assessment Notes Cold sore Cold sore. Pt denies any medication allergies. Denies any kidney or liver issues. Denies any chance of or . Discussed valtrex i.e. uses, side effects. Will order valtrex for pt. Other Pt advised to call within the week if symptoms not improving, sooner for any worsening of symptoms. Pt advised to call for any additional concerns. Patient consented to a telemedicine encounter via audio communication. Patient physical location for DOS is at listed residence unless otherwise stated. Billing based on cummulative time. All lab work, imaging, medications and records pertinent to the below diagnoses were reviewed with patient. Treatment plan and goals were reviewed with patient and/or family, suggestions for self care tools at home were discussed with patient and/or family where appropriate. Questions were answered to patient satisfaction. Patient agrees to the plan and follow up recommendations discussed. Patient aware to follow up sooner if any new or worsening symptoms. ER instructions explained where appropriate. Progress Notes * [place] ARENASDOB:2000 (23 yo F)Acc No.[id number]:10/24/2023 Patient: Nannette [place] PAREKH Provider: LUZ MARIA Torres :2000 A ge:23 Y S ex:Female Date:10/24/2023 Address:[address] [facility] Pcp:TONYA ASHBY Subjective: * Chief Complaints: * 1 . Cold Sore. * HPI: [facility]: Pt calling in today about cold sore. This started today. States that she has been under stress lately. States that she had another cold sore about 1 month ago, states that around this time of year she does sometimes get cold sores anyway. States that in the past for cold sores she has tried camphophenique and abreva but a friend talked to her about valtrex and she is wondering if she could get a prescription for valtrex. * ROS: A ll Other Systems: Review of Systems (ROS) S ee HPI for details,All others negative except those mentioned in HPI. * Medical History: B irth control, Not Covid vaccinated, PCP- CHRISTOPHER Garcia, [address] [place] [address] phone . * Surgical History: a ppendectomy 10/2015 , wisdom teeth extraction . * Hospitalization/Major Diagno stic Procedure: A ppy . * Family History: F ather: alive, prediabetes. M other: alive, healthy. P aternal Grand Father: alive, lliver cancer, diabetes. 2 brother(s) , 2 sister(s) - healthy. . Paternal Grandmother - melanoma. * Social History: T obacco Use: T obacco Use/Smoking A dditional Findings: Tobacco User e -Cigarette. D rugs/Alcohol: D o you smoke marijuana?: Denies. Do you drink alcohol?: No. D oes not smoke cigarettes V apes nicotine 1-3 times a day A lcohol none D malachi Marijuana, recreational drugs. * Medications: N ot-Taking Mirena * Allergies: N .K.D.A. Objective: * Examination: [facility]- General Medicine: GENERAL APPEARANCE: p leasant, in no acute distress. EARS: H earing normal. LUNGS: N o respiratory distress. PSYCH: a lert, oriented , cooperative with exam , judgement and insight good , speech clear. Assessment: * Assessment: 1. C old sore - B00.1 (Primary) Plan: * Treatment: 2. O thers Notes: Pt advised to call within the week if symptoms not improving, sooner for any worsening of symptoms. Pt advised to call for any additional concerns. Patient consented to a telemedicine encounter via audio communication. Patient physical location for DOS is at listed residence unless otherwise stated. Billing based on cummulative time. All lab work, imaging, medications and records pertinent to the below diagnoses were reviewed with patient. Treatment plan and goals were reviewed with patient and/or family, suggestions for self care tools at home were discussed with patient and/or family where appropriate. Questions were answered to patient satisfaction. Patient agrees to the plan and follow up recommendations discussed. Patient aware to follow up sooner if any new or worsening symptoms. ER instructions explained where appropriate. ? Clinical Notes: Provider follow up: 1 week Additional needs: PCT to send rx to preferred pharmacy, Family pharmacy * Procedure Codes: 9 [id number] ONLINE E/M BY PAUL * Billing Information: * Visit Code: * Procedure Codes: 20042 ONLINE E/M BY PAUL. * [facility] Sign off status: Completed true * Provider: LUZ MARIA Torres Date: 1 12/25/2022 Generated for Leanne ludwig/Arcenio/eTransmitting on: 0 01/05/2025 06:21 PM [facility] History and Physical Notes * HPI (History of Present Illness) Category Sub-Category Detail Notes Category Not es Progress Note: Pt calling in today about cold sore. This started today. States that she has been under stress lately. States that she had another cold sore about 1 month ago, states that around this time of year she does sometimes get cold sores anyway. States that in the past for cold sores she has tried camphophenique and abreva but a friend talked to her about valtrex and she is wondering if she could get a prescription for valtrex. Examination Category Sub-Category Detail Notes Category Not es [facility]- General Medicine GENERAL APPEARANCE: pleasant, in no acute distress EARS: Hearing normal LUNGS: No respiratory distr ess PSYCH: alert, oriented , co operative with exam , judgement and insight good , speech clear
--- OUTSIDE RECORDS SUMMARY | 2025-01-05 19:22 | XMS_ITS ---
Author Organization [facility] [place] Address [address] [place] [address] Care Team Providers Care Manager Loan Name Role Phone TONYA ASHBY Primary Care Provider [phone] IAN MCKENZIE Unavailable [phone] REASON FOR VISIT Cold sore Medications Medication SIG (Take, Route, Fr equency, Duration) Notes Start Date End Date Status Mirena Not-Taking Encounters Encounter Location Date Provider Diagnosis [facility] [place] [address] [place] [address] 10/24/2023 IAN MCKENZIE Assessments Encounter Date Diagnosis (ICD Code) Assessment Notes Treatment Notes Treatment Clinical Notes Section Notes 10/24/2023 Other Called pt, no answer. Called pt another time, no answer. Unable to leave VM as automated message states that call cannot be completed at this time, please check the number and call again later. PCT to send message to pt to call back when available. I did not speak to pt. VBP not completed. Plan Of Treatment Treatment Notes Assessment Notes Other Called pt, no answer . Called pt another time, no answer. Unable to leave VM as automated message states that call cannot be completed at this time, please check the number and call again later. PCT to send message to pt to call back when available. I did not speak to pt. VBP not completed. Progress Notes * [place] ARENASDOB:2000 (23 yo F)Acc No.[id number]:10/24/2023 Patient: Pankaj OCONNORyssa Provider: LUZ MARIA Torres :2000 A ge:23 Y S ex:Female Date:10/24/2023 Address:[address] [id number] Pcp:TONYA ASHBY Subjective: * Chief Complaints: * 1 . Cold sore. * HPI: R [employer] [facility]: Symptoms: Other: cold sore; When did this start: 1 Hour(s); Severity: Mild; What Caused This: Stress; Had this problem before: Yes, Explanation: Once about a month ago, but I've had them my whole life.; Makes this feel better: Nothing; Makes this feel worse: Nothing; Anything else: I'd like to discuss possibly getting a prescription for Valtrex ; P H: [phone]. * Medical History: * Medications: N ot-Taking Mirena Objective: Assessment: Plan: * Treatment: * Billing Information: * Visit Code: * Procedure Codes: * [facility] Sign off status: Completed true * Provider: LUZ MARIA Torres Date: 12/25/2022 Generated for Leanne ludwig/Arcenio/eTransmitting on: 0 01/05/2025 06:21 PM [facility] History and Physical Notes * HPI (History of Present Illness) Category Sub-Category Detail Notes Category Not es Progress Note: Symptoms: Other: cold sore; When did this start: 1 Hour(s); Severity: Mild; What Caused This: Stress; Had this problem before: Yes, Explanation: Once about a month ago, but I've had them my whole life.; Makes this feel better: Nothing; Makes this feel worse: Nothing; Anything else: I'd like to discuss possibly getting a prescription for Valtrex ; PH: [phone] Examination Category Sub-Category Detail Notes Category Not es [facility]- [facility] LUNGS:
--- OUTSIDE RECORDS SUMMARY | 2025-01-05 19:22 | XMS_ITS | Patient Health Record ---
Author Organization [facility] Address [address] [place] [address] Care Team Providers Care Glass Driller Name Role Phone ASHBYTONYA Primary Care Provider Allergies No Known Allergies Reason For Referral No Information Medications Medication SIG (Take, Route, Fr equency, Duration) Notes Start Date End Date Status Mirena Not-Taking Social History Tobacco Use/Smoking Question Answer Notes Additional Findings: Tobacco User e-Cigarette Section Notes: Does not smoke cigarettes Vapes nicotine 1-3 times a day Alcohol none Denes Marijuana, recreational drugs Does not smoke cigarettes Vapes nicotine 1-3 times a day Alcohol none Denes Marijuana, recreational drugs Does not smoke cigarettes Vapes nicotine 1-3 times a day Alcohol none Denes Marijuana, recreational drugs Does not smoke cigarettes Vapes nicotine 1-3 times a day Alcohol none Denes Marijuana, recreational drugs Does not smoke cigarettes Vapes nicotine 1-3 times a day Alcohol none Denes Marijuana, recreational drugs Plan Of Treatment No Information Insurance Providers Payer Name Payer Address Payer Phone Subscriber Number Group Number Insured Name Patient Relationship to Insured Coverage Start Date Coverage End Date [employer] [address] [place] [address] [id number] Salina Shannon Self - patient is the insured 2 4 Medical (General) History Medical History History ICD Code control Not Covid vaccinated PCP- CHRISTOPHER Garcia, [address] [place] [address] phone Surgical History Surgery Date(Month/Year) appendectomy 10/2015 wisdom teeth extraction Hospitalization History Reason Date(Month/Year) [facility]
[2025-01-05 19:28] VITALS: BP 112/83; PULSE 121; RESP 18; TEMP 36.8; O2SAT 97
--- NOTE | 2025-01-05 19:34 | ED.GENADULT ---
HPI - General Adult General Chief complaint: Upper Respiratory Infection Stated complaint: flu symptoms History of Present Illness HPI narrative: Salina Shannon Is a 24-year-old female who presents with complaints of having URI symptoms that started 2 days ago. She states that she has had a cough, body aches, fever, sore throat, runny nose. Denies shortness of breath denies chest pain. Related Data Allergies Allergy/AdvReac Type Severity Reaction Status Date / Time No Known Allergies Allergy Verified 01/05/25 19:36 Review of Systems Review of Systems: All systems reviewed & are unremarkable except as noted in HPI and below Exam Narrative: GENERAL: Well-appearing, well-nourished, and in no acute distress. HEAD: Normocephalic, atraumatic. EYES: PERRLA and EOMI. ENT: Nares clear, no rhinorrhea or epistaxis. Mucous membranes moist. Oropharynx with erythema without tonsillar hypertrophy exudate or other lesions. Bilateral TMs pearly guardado nonbulging NECK: Supple. No adenopathy or masses. No carotid bruits or JVD CHEST: Clear to auscultation. No respiratory distress. No wheezes rales or rhonchi HEART: Regular rate and rhythm. No murmur heard. Normal peripheral pulses. ABDOMEN: Soft, nontender, nondistended, normal active bowel sounds. EXTREMITIES: Normal range of motion. No edema. SKIN: Warm, dry, no rash. NEURO: No focal deficits. Alert and oriented x3. PSYCH: Normal mood and affect. Course Course Level of Care: Express Care Visit Vital Signs Vital signs: Vital Signs Temperature 36.8 C 01/05/25 19:28 Pulse Rate 121 H 01/05/25 19:28 Respiratory Rate 18 01/05/25 19:28 Blood Pressure 112/83 01/05/25 19:28 Pulse Oximetry 97 01/05/25 19:28 Oxygen Delivery Room Air 01/05/25 19:28 Temperature 36.8 C 01/05/25 19:28 Pulse Rate 121 H 01/05/25 19:28 Respiratory Rate 18 01/05/25 19:28 Blood Pressure 112/83 01/05/25 19:28 Pulse Oximetry 97 01/05/25 19:28 Oxygen Delivery Room Air 01/05/25 19:28 Medical Decision Making MDM Narrative Medical decision making narrative: ED COURSE AND MEDICAL DECISION MAKING: This 24 year old patient presents with symptoms most suggestive of viral upper respiratory tract infection. Lungs are clear bilaterally without any respiratory distress or accessory muscle use. Viral swab: Patient is discharged home in stable condition with expectant management. Return precautions were provided. Procedures: Pulse oximetry interpretation - not hypoxic. Review of medical records. DISPOSITION: Discharged home in stable condition. IMPRESSION: Acute upper respiratory tract infection, likely viral. Vital Signs Vital Signs: Vital Signs Temperature 36.8 C 01/05/25 19:28 Pulse Rate 121 H 01/05/25 19:28 Respiratory Rate 18 01/05/25 19:28 Blood Pressure 112/83 01/05/25 19:28 Pulse Oximetry 97 01/05/25 19:28 Oxygen Delivery Room Air 01/05/25 19:28 Temperature 36.8 C 01/05/25 19:28 Pulse Rate 121 H 01/05/25 19:28 Respiratory Rate 18 01/05/25 19:28 Blood Pressure 112/83 01/05/25 19:28 Pulse Oximetry 97 01/05/25 19:28 Oxygen Delivery Room Air 01/05/25 19:28 Vitals reviewed by me Lab Data Lab results reviewed: Yes I reviewed the patient's lab results. Discharge Plan Discharge Clinical Impression: Influenza A Upper respiratory infection Qualifiers: URI type: unspecified URI Qualified Code(s): J06.9 - Acute upper respiratory infection, unspecified Patient Disposition: Home, Self-Care Condition: Stable Instructions: Antibiotic Form Additional Instructions: Start taking Tylenol / Motrin for fever and body aches You may take over the counter cold medications Push oral hydration drinking lots of water/ Gatorade / popsicles Get plenty of rest Follow up with your PCP in 1 week to ensure you are improving If you develop any worsening symports or concerns return or proceed to the ER> Patient Language: Slovak Follow-up/Referrals: PHYSICIAN,[employer] MANAGER [Primary Care Provider] - Stand Alone Forms: Work/School Release IP Time of Disposition: 19:40
[2025-01-05 19:42] LABS: EDCOVIDSCREEN Negative (Negative)
[2025-01-05 19:43] LABS: EDINFLUASCREEN Positive (Negative); EDINFLUBSCREEN Negative (Negative)
== END 2025-01-05 19:53 | disposition home or self-care (01) ==
PROVIDERS: Emergency Provider Nurse Practitioner Family
DX: J10.1 Influenza due to other identified influenza virus with other respiratory manifestations (principal); Z20.822 Contact with and (suspected) exposure to COVID-19
CPT/HCPCS: 87426; 87804; 99202; G0463